=== PATIENT | female | born 1995 | race Caucasian/White ===

== ENCOUNTER 2018-08-19 09:27 | Emergency (ER) | payer OTHER ==
[~2018-08-19] VITALS: Ht 154.9 cm; Wt 73.5 kg
[2018-08-19 09:33] VITALS: Ht 154.9 cm; Wt 73.5 kg
[2018-08-19 11:34] LABS: BASOPHIL % 0.4 % (0-2); PLATELET COUNT 288 x10^3mcL (130-400); RED CELL DISTRIBUTION WIDTH 12.6 % (11.5-14.5)
[2018-08-19 11:53] LABS: microscopic required? YES; urine erythrocyte 1+ (NEGATIVE)
[2018-08-19 11:55] LABS: CARBON DIOXIDE 25.8 mmol/L (21-32); CHLORIDE SERUM 103 mmol/L (98-107); CREATININE SERUM 0.7 mg/dL (0.6-1.0); GFR1 > 60 mL/min; GLUCOSE SERUM 93 mg/dL (74-106); POTASSIUM SERUM 3.6 mmol/L (3.5-5.1); SODIUM SERUM 136 mmol/L (136-145)
[2018-08-19 12:00] LABS: ALBUMIN 3.6 g/dL (3.4-5.0); ALKALINE PHOSPHATASE 55 U/L (46-116); ALT/SGPT 10 U/L (14-59); AST/SGOT 15 U/L (15-37); BILIRUBIN TOTAL 0.82 mg/dL (0.20-1.00); TOTAL PROTEIN, SERUM 7.4 g/dL (6.4-8.2)
[2018-08-19 12:07] VITALS: BP 127/79
== END 2018-08-19 14:39 | disposition home or self-care (01) ==
LOC: ED 09:27
PROVIDERS: Emergency Medicine
DX: N12 Tubulo-interstitial nephritis, not specified as acute or chronic (principal); F41.9 Anxiety disorder, unspecified; Z88.0 Allergy status to penicillin; Z87.19 Personal history of other diseases of the digestive system
CPT/HCPCS: J1885; J1956; J2405; J7050; Q0092

== ENCOUNTER 2020-07-08 12:28 | Emergency (ER) | payer BC ==
[~2020-07-08] VITALS: Ht 154.9 cm; Wt 76.7 kg
[2020-07-08 14:19] LABS: PLATELET COUNT 314 x10^3mcL (130-400)
[2020-07-08 14:20] LABS: BASOPHIL % 0 % (0-2)
[2020-07-08 14:23] LABS: CALCIUM 10.5 mg/dL (8.5-10.1); CARBON DIOXIDE 21.8 mmol/L (21-32); CHLORIDE SERUM 97 mmol/L (98-107); CREATININE SERUM 0.9 mg/dL (0.6-1.0); GFR1 > 60 mL/min; GLUCOSE SERUM 89 mg/dL (74-106); POTASSIUM SERUM 3.8 mmol/L (3.5-5.1); SODIUM SERUM 130 mmol/L (136-145)
[2020-07-08 14:28] LABS: ALBUMIN 4.3 g/dL (3.4-5.0); ALKALINE PHOSPHATASE 74 U/L (46-116); ALT/SGPT 31 U/L (14-59); AST/SGOT 17 U/L (15-37); BILIRUBIN TOTAL 1.4 mg/dL (0.20-1.00); LIPASE 148 IU/L (73-393)
[2020-07-08 14:29] LABS: TOTAL PROTEIN, SERUM 8.7 g/dL (6.4-8.2)
[2020-07-08 14:33] LABS: microscopic required? NO
[2020-07-08 14:50] LABS: UA SPECIFIC GRAVITY >=1.030 (1.005-1.035); urine erythrocyte NEGATIVE (NEGATIVE)
[2020-07-08 17:06] VITALS: BP 103/38
== END 2020-07-08 17:06 | disposition home or self-care (01) ==
LOC: ED 12:28
PROVIDERS: Emergency Medicine
DX: K21.9 Gastro-esophageal reflux disease without esophagitis (principal); E80.6 Other disorders of bilirubin metabolism; Z88.0 Allergy status to penicillin
CPT/HCPCS: 99406; J2765; J3490; J7030; Q0092